=== PATIENT | female | born 1995 | race Hispanic/Latino ===

== ENCOUNTER 2020-03-08 05:57 | Inpatient (IN) | payer OTHER, SELFPAY ==
[2020-03-08] VITALS (168 sets, daily range): BP systolic 83–148; BP diastolic 33–95; PULSE 66–145; TEMP 36.3–37.3; O2SAT 89–100; BMI 42.5
[2020-03-08] MEDS: AMPICILLIN 2 GM/NS 100 ML 2 GM/100 ML BAG IVPB (06:37)
[2020-03-08] MEDS: LACTATED RINGERS 1,000 ML 125 ML IV CONT ×3 (06:39→18:22)
[2020-03-08] MEDS: OXYTOCIN 30 UNITS/NS 500 ML 30 UNITS/500 ML BAG 125 UNITS IV CONT (06:39)
[2020-03-08 06:55] LABS: Basophils Percent Auto 0.3 % (0.2-1.2); Eosinophils Absolute Auto 0.1 K/mm3 (0-0.3); Eosinophils Percent Auto 0.7 % (0-4.4); Hematocrit 40.1 % (37.0-47.0); Hemoglobin 13.3 g/dL (12.0-15.0); Immature Granulocyte Absolute 0.19 K/mm3 (0.00-0.031); Immature Granulocyte Percent A 1.5 % (0-0.5); Lymphocytes Absolute Auto 2.76 K/mm3 (0.9-3.2); Lymphocytes Percent Auto 22.5 % (18.3-44.2); Mean Corpuscular HGB Conc 33.2 g/dl (32-36); Mean Corpuscular Hemoglobin 29.5 pg (26-34); Mean Corpuscular Volume 88.9 fl (80-100); Mean Platelet Volume 10.7 fl (7.4-10.4); Monocytes Percent Auto 8.1 % (2.6-8.5); Neutrophils Absolute Auto 8.2 K/mm3 (1.3-6.7); Neutrophils Percent Auto 66.9 % (45.5-73.1); Platelet Count Result 221 k/mm3 (150-375); Red Blood Count 4.51 M/mm3 (4.2-5.4); Red Cell Distribution Width 14.9 % (11.5-14.5); White Blood Count 12.3 K/mm3 (4.5-10.0)
--- NOTE | 2020-03-08 07:34 | LDADM ---
This patient, Kimmie Blakely, was admitted to Labor/Delivery/Recovery 104 on 03/08/20 at 05:57. Plans for labor, pain management and were discussed with patient. Patient/family oriented to hospital policies and general routines including ID bracelet, bed and alarms, visiting hours, pain management, procedures, bathroom and other care routines, personal items, smoking policy, room service/diet and guest tray routines, infant security routines, and visiting hours. Patient/Family are encouraged to report perceived risks to care and to ask questions if they do not understand what they are told or what they should do. See OBIX for further documentation.
--- NOTE | 2020-03-08 09:16 | WPDANESEPP ---
Anes - Eval Pre Procedure Procedure: Labor epidural Date/Time: 03/08/20 09:16 Surgeon: Meir Frank M.D. Preop Diagnosis: pain during labor Pre Op Diagnosis: INDUCTION OF LABOR Patient Data Age: 24 Gender: F Height: 1.6 m Weight: 109 kg Last Vital Signs Temp 36.6 C 03/08/20 07:00 Pulse 70 03/08/20 09:00 BP 97/53 L 03/08/20 09:00 Allergies Allergy/AdvReac Type Severity Reaction Status Date / Time No Known Allergies Allergy Verified 02/20/20 14:57 Home Medications Medication Instructions Recorded Confirmed Type PNV cmb#95-ferrous fumarate-FA 1 tablet PO DAILY 02/20/20 02/20/20 History [] Laboratory Tests 03/08/20 03/08/20 03/08/20 06:35 06:35 06:35 WBC 12.3 K/mm3 H K/mm3 (4.5-10.0) RBC 4.51 M/mm3 M/mm3 (4.2-5.4) Hgb 13.3 g/dL g/dL (12.0-15.0) Hct 40.1 % % (37.0-47.0) MCV 88.9 fl fl (80-100) MCH 29.5 pg pg (26-34) MCHC 33.2 g/dl g/dl (32-36) RDW 14.9 % H % (11.5-14.5) Plt Count 221 k/mm3 k/mm3 (150-375) MPV 10.7 fl H fl (7.4-10.4) Immature Gran % (Auto) 1.5 % H % (0-0.5) Neut % (Auto) 66.9 % % (45.5-73.1) Lymph % (Auto) 22.5 % % (18.3-44.2) [place] % (Auto) 8.1 % % (2.6-8.5) Eos % (Auto) 0.7 % % (0-4.4) Baso % (Auto) 0.3 % % (0.2-1.2) Lymph # (Auto) 2.76 K/mm3 K/mm3 (0.9-3.2) [place] # (Auto) 1.0 K/mm3 H K/mm3 (0.1-0.6) Eos # (Auto) 0.1 K/mm3 K/mm3 (0-0.3) Baso # (Auto) 0.0 K/mm3 K/mm3 (0.0-0.1) Abs Immat Gran (auto) 0.19 K/mm3 H K/mm3 (0.00-0.031) Absolute Neuts (auto) 8.2 K/mm3 H K/mm3 (1.3-6.7) Absolute Nucleated RBC 0.0 K/mm3 K/mm3 (0.0-0.012) Nucleated RBC % 0.0 % % (0.0-0.2) RPR Pending Blood Type O Positive Antibody Screen Negative Patient hx anesthesia problems: none Family hx anesthesia problems: none PMFSH Past Medical History Medical History (Updated 03/08/20 @ 09:16 by Pallavi Owens CRNA) IUP (intrauterine ), incidental Morbid obesity with BMI of 40.0-44.9, adult Family History Family History (Updated 02/20/20 @ 14:59 by Marga Gillespie RN) Father Diabetes mellitus Grandparent Diabetes mellitus Grandparent Breast cancer Social History Social History Smoking status: Never smoker Substance use: never Spiritual care concerns: No Exam Day of Procedure 03/08/20 09:16
[2020-03-08] MEDS: AMPICILLIN 1 GM/NS 50 ML 1 GM/50 ML BAG IVPB ×4 (10:37→22:46)
[2020-03-08 11:08] LABS: Amphetamine Screen Urine Negative (Negative); Barbiturate Screen Urine Negative (Negative); Benzodiazepines Screen Urine Negative (Negative); Cannabinoid Screen Urine Negative (Negative); Cocaine Screen Urine Negative (Negative); Methadone Screen Urine Negative (Negative); Opiate Screen Urine Negative (Negative); Phencyclidine Screen Urine Negative (Negative)
--- NOTE | 2020-03-08 11:33 | PM.IMHP ---
H&P: HPI History of Present Illness Chief complaint: INDUCTION OF LABOR Narrative: Kimmie Blakely is a 24yo @ 39.0wks who presented for elective induction of labor. Her is complicated by: 1. GBS positive 2. Obesity Review of Systems Constitutional: Constitutional: Denies body ache(s) and Denies chills Eyes: Eyes: Denies blurry vision Cardiovascular: Cardiovascular: Denies chest pain and Denies palpitations Respiratory: Respiratory: Denies cough and Denies dyspnea Gastrointestinal: Gastrointestinal: Denies nausea and Denies vomiting Genitourinary: Genitourinary: Denies vaginal discharge Musculoskeletal: Musculoskeletal: Reports back pain Neurologic: Denies headache(s) PMFSH Past Medical History Medical History IUP (intrauterine ), incidental Morbid obesity with BMI of 40.0-44.9, adult Family History Family History Father Diabetes mellitus Grandparent Diabetes mellitus Grandparent Breast cancer Social History Social History Smoking status: Never smoker Substance use: never Spiritual care concerns: No Meds Home Medications and Allergies Home Medications Medication Instructions Recorded Confirmed Type PNV cmb#95-ferrous fumarate-FA 1 tablet PO DAILY 02/20/20 02/20/20 History [] Allergies Allergy/AdvReac Type Severity Reaction Status Date / Time No Known Allergies Allergy Verified 02/20/20 14:57 Vital Signs Vital Signs - 24 hr 03/08/20 06:30 03/08/20 06:32 03/08/20 06:46 Temperature Pulse Rate 81 88 76 Blood Pressure 142/79 H 134/61 134/78 03/08/20 07:00 03/08/20 07:01 03/08/20 07:16 Temperature 36.6 C Pulse Rate 74 80 Blood Pressure 133/80 106/90 03/08/20 07:31 03/08/20 07:46 03/08/20 08:16 Temperature Pulse Rate 80 97 80 Blood Pressure 126/75 83/33 L 86/48 L 03/08/20 08:31 03/08/20 09:00 06/25/20 09:30 Temperature Pulse Rate 81 70 68 Blood Pressure 101/46 L 97/53 L 108/60 Exam Const: General: comfortable and no acute distress Resp: Effort & Inspection: normal respiratory effort Cardio: Rate: regular rate : Other: FHT's: 130's/ mod jim/ + accels/ no decels - cat 1 TOCO: irregular ctx's Cervix: 60/-3 Membranes: AROM, clear @ 1120 on 03/08/20 Pitocin augmentation: 24mU Skin: General skin exam: normal color Neuro: Cognition (Neuro): normal cognition Speech: normal speech Extrem: General: normal to inspection Psych: Mental Status: mental status grossly normal Affect: normal affect H&P: Results Labs Labs: Short CBC 03/08/20 Range/Units 06:35 WBC 12.3 H (4.5-10.0) K/mm3 Hgb 13.3 (12.0-15.0) g/dL Hct 40.1 (37.0-47.0) % Plt Count 221 (150-375) k/mm3 Assessment and Plan Assessment and plan (1) IUP (intrauterine ), incidental: Code(s): Z33.1 - state, incidental Status: Acute (2) Morbid obesity with BMI of 40.0-44.9, adult: Code(s): E66.01 - Morbid (severe) obesity due to excess calories; Z68.41 - Body mass index (BMI) 40.0-44.9, adult Status: Acute Additional Plan - Admit to L&D for IOL - Pitocin per protocol, AROM clear @ 1120 on 03/08/20-- IUPC placed to better monitor contractions due to obesity - Continuous monitoring; currently category 1 - GBS ppx w/ ampicillin, s/p 4 hours of abx prior to AROM - BP's noted to be in the mild range occasionally on admission, none since; will monitor closely, if another develops, will send PI labs - Pt also has skin tag on right leg and would like removal after delivery (plans to get epidural) - Anesthesia consult PRN pain.
[2020-03-08] MEDS: OXYTOCIN 30 UNITS/NS 500 ML 30 UNITS/500 ML BAG 40 UNITS IV CONT (23:16)
[2020-03-09] VITALS (57 sets, daily range): BP systolic 85–132; BP diastolic 53–104; PULSE 43–143; RESP 16–18; TEMP 36.7–37.5; O2SAT 81–100
[2020-03-09] MEDS: MISOPROSTOL 200 MCG TABLET 1000 MCG RECTAL (02:00)
[2020-03-09] MEDS: OXYTOCIN 30 UNITS/NS 500 ML 30 UNITS/500 ML BAG 125 UNITS IV CONT (02:20)
--- NOTE | 2020-03-09 02:40 | PM.OBPRVD ---
OB - Delivery Note Procedure Delivery date: 03/09/20 Procedure: Patient progressed to complete dilation and began pushing. after approximately 1.5 hours the head was delivered over intact perineum. the shoulders and body delivered without complications. via had spontaneous cry and was immediately placed skin to skin. the umbilical cord was clamped and cut. a segment of cord was collected for cord gases. the remaining cord blood was collected for typing. a prophylactic dose of Cytotec was placed rectally due to the prolonged Pitocin augmentation with Pitocin running and gentle traction on the cord the placenta delivered without complications. the cervix vagina and perineum were examined and bilateral vaginal lacerations were noted and bleeding. they were repaired in a running fashion using 2 0 Vicryl and noted to be hemostatic. a first-degree perineal laceration was also noted and repaired using a lovolh-gw-pldln 2-0 Vicryl stitch. the fundus was palpated firm. the patient also had a skin tag noted on her inner right thigh desired removal. the skin tag was elevated and cut at its base. an interrupted stitch using 0 Vicryl and Steri-Strips were placed over the incision and good hemostasis was noted. sponge lap needle and instrument counts were correct at the end procedure. mom and baby were left bonding skin to skin in the birthing suite in stable condition. Induction method: per pitocin protocol Delivery augmentation: rupture of membranes Delivery monitor: external FHT and internal uterine Route of delivery: Laceration description: Vaginal - 1st Degree (and Perineal - 1st Degree) Delivery repair: vicryl Specimen: Yes Estimated blood loss (mL): 300 Anesthesia type: Epidural Disposition: floor [place] Baby Date of : 03/09/20 Time of : 01:54 Weeks of gestation at delivery: 39 Infant gender: Male Weight (pounds): 7 Weight (ounces): 8 presentation: vertex Placenta delivery description: Expressed cord vessel description: 3 Vessels score one minute: 9 score five minutes: 9
[2020-03-09] MEDS: IBUPROFEN 600 MG TABLET PO ×2 (03:14→15:54)
[2020-03-09] MEDS: BENZOCAINE 20% AER SPR (*SP) 56 GM CAN 1 SPRAY TOPICAL (03:14)
[2020-03-09] MEDS: WITCH HAZEL 40 PADS 1 PAD TOPICAL (03:14)
--- NOTE | 2020-03-09 04:40 | OBPPTRN ---
Patient transferred to post room #287 via wheelchair with in crib. Support person present. Oriented to unit, room, information board, rooming in, admission packet and security measures. Patient verbalizes understanding.
[2020-03-09 10:46] LABS: Rapid Plasma Reagin Non-Reactive (NonReactive)
[2020-03-09] MEDS: DOCUSATE SODIUM 100 MG CAPSULE PO (15:55)
[2020-03-10 05:34] LABS: Hematocrit 31.5 % (37.0-47.0); Hemoglobin 10.1 g/dL (12.0-15.0)
--- NOTE | 2020-03-10 07:40 | PM.OBDSVD ---
DS: Admitting Diagnosis Admitting Diagnosis Admitting Diagnosis: state, incidental OB - DS: Summary OB Procedures : None OB Procedures Intrapartum: Spontaneous Vag Delivery OB Procedures: : None Time Spent with Patient Time attestation: Total time spent providing and/or coordinating discharge services: DS: Data Data Completed and Pending Pending studies at discharge: Pending at discharge 03/09/20 02:12 Surgical [PTH] Routine Surgical [PTH] Routine Labs on day of discharge: Labs from last 24 hours 03/10/20 03/08/20 05:20 06:35 Hgb 10.1 L D Hct 31.5 L RPR Non-reactive Discharge Plan Discharge Discharging Clinician: Meir Frank Patient Disposition: Home, Self-Care Activity: as tolerated Diet: as tolerated Patient Instructions: Antibiotic Form Stand Alone Forms: General Discharge Information Follow-up/Referrals: Meir Frank MD [Physician] - 3 Weeks Discharge Medications: New ibuprofen 600 mg Tablet 600 mg PO Q6H PRN (Reason: Cramping) Qty: 30 RF: 0 Continued PNV cmb#95-ferrous fumarate-FA [] 28 mg iron- 800 mcg Tablet 1 tablet PO DAILY RF: 0 Date of admission: 03/08/20 05:57 Primary Care Provider: Mohini Castillo Admitting Provider: Meir Frank Attending physician on admission: Meir Frank
[2020-03-10 09:42] VITALS: BP 115/60; PULSE 79; RESP 12; TEMP 36.7; O2SAT 99
[2020-03-10] MEDS: IBUPROFEN 600 MG TABLET PO ×3 (09:42→23:22)
--- NOTE | 2020-03-10 10:07 | WPDANLDPN2 ---
Anes-Prog Note L&D Date/Time: 03/10/20 10:07 Comfortable throughout: labor and delivery Neuraxial method: epidural Epidural/Spinal procedure site: clean & non-tender Neuro status: Neuro function grossly intact. Cardiovascular status: normal Respiratory status: normal Airway patency: baseline Mental status: baseline Post-Op hydration status: normal Vital Signs: Last Vital Signs Temp 36.7 C 03/09/20 21:22 Pulse 96 03/09/20 21:22 Resp 17 03/09/20 21:22 BP 113/66 03/09/20 21:22 Pulse Ox 99 03/09/20 08:20 Pain score (VAS): 0/10. Patient resting up to bedside at time of assessment, appears comfortable. Post-procedural complaints: none Patient feedback: Patient satisfied with anesthetic care.
--- NOTE | 2020-03-10 10:19 | PCCCNOTE ---
SS Note. Received consult. Met with pt. and father of baby at bedside. Pt. and father of baby are awake, alert and participate in discussion. 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 She indicates quitting use of meth and quit smoking when known. Her UDS is negative. She lives with her mother and father and plans to return there with baby at discharge. She indicates that her mother and father are supportive and will assist her at discharge. She also indicates father of baby being supportive. She states having all needed items to care for baby at discharge home and is current with WIC. She reports having no history with DCFS. This is her first child. Have offered additional resources and she accepted same. Encouraged she contact any/all of interest. Have informed RN of all above and no further concerns are indicated at this time.
[2020-03-10] MEDS: DOCUSATE SODIUM 100 MG CAPSULE PO (16:44)
[2020-03-10 19:00] VITALS: BP 110/69; PULSE 94; RESP 16; TEMP 36.3; O2SAT 98
[2020-03-11 07:53] VITALS: BP 131/71; PULSE 93; RESP 16; TEMP 36.9; O2SAT 99
[2020-03-11] MEDS: DOCUSATE SODIUM 100 MG CAPSULE PO (07:53)
[2020-03-11] MEDS: IBUPROFEN 600 MG TABLET PO (07:53)
[2020-03-13 08:49] VITALS: BP 120/74; PULSE 72; RESP 20; TEMP 37.1; O2SAT 100
--- NOTE | 2020-04-02 07:10 | P.DS_ITS ---
DS: Admitting Diagnosis Admitting Diagnosis Admitting Diagnosis: Encounter for supervision of normal , unspecified, third trimester OB - DS: Summary OB Procedures : None OB Procedures Intrapartum: OB Procedures: : None Time Spent with Patient Time attestation: Total time spent providing and/or coordinating discharge services: DS: Data Data Completed and Pending Completed studies during hospitalization: Pending at discharge 03/09/20 02:12 Surgical [PTH] Routine Surgical [PTH] Routine Discharge Plan Discharge Discharging Clinician: Meir Frank Patient Disposition: Home, Self-Care Activity: as tolerated Diet: as tolerated Discharge Instructions: Education: Mom and Baby Guide Given to: Patient Follow-Up: Call your delivering provider's office for an appointment to be seen in: 3 weeks Mom and baby should come to the [facility] for the follow-up appointment. Appointment Date/Time: Thursday03/13/2020 at 9:00 am Call [phone] if you are unable to keep your appointment time. BREAST CARE: 1. Wear a snug supportive bra. 2. For engorgement discomfort: Bottle Feeding: A. May apply ice packs EPISIOTOMY/PERINEAL CARE: 1. Until bleeding stops, use your tawnya bottle after urinating 2. Change your pad frequently throughout the day 3. You may take sitz baths several times a day (fill your bathtub with warm water and soak for 20 minutes.) Do NOT bathe in the water 4. No tub baths until seen by your physician - You may shower ACTIVITY: 1. Rest as much as possible. 2. Do not exercise or lift anything heavier than your baby (such as laundry or other children.) 3. Avoid stairs or driving as much as possible. 4. Do not put anything into the vagina. No douching, tampons, or sexual activity until seen by physician. NOTIFY PHYSICIAN IF YOU HAVE ANY QUESTIONS OR IF ANY OF THE FOLLOWING SYMPTOMS OCCUR: 1. If your episiotomy or incision becomes red, swollen, or more painful than what you have experienced in the hospital. 2. If your vaginal bleeding becomes foul smelling. 3. If your vaginal bleeding becomes more heavy than a period or if your bleeding changes from pink to bright red. However, you may pass an occasional walnut- sized clot once or twice for the first week . 4. If you experience a sharp, shooting pain in you calves. 5. If you discover a hard, reddened area on your breast or if you experience flu-like symptoms. DIET: 1. Eat regular, well-balanced meals. 2. Drink plenty of fluids daily. If , drink to thirst. Patient Instructions: Antibiotic Form Follow-up/Referrals: Meir Frank MD [Physician] - 3 Weeks Discharge Medications: New ibuprofen 600 mg Tablet 600 mg PO Q6H PRN (Reason: Cramping) Qty: 30 RF: 0 Continued PNV cmb#95-ferrous fumarate-FA [] 28 mg iron- 800 mcg Tablet 1 tablet PO DAILY RF: 0 Date of admission: 03/08/20 05:57 Primary Care Provider: Mohini Castillo Admitting Provider: Meir Frank Discharge Date/Time: 03/11/20 11:19 Attending physician on admission: Meir Frank
== END 2020-03-11 11:19 | disposition home or self-care (01) | DRG 560 ==
LOC: ANHLDR 06:20 → ANHOB2 03-09 05:04
PROVIDERS: Obstetrics & Gynecology; Admitting Provider Obstetrics & Gynecology; PCP Pediatrics; Visit Provider Obstetrics & Gynecology
DX: O99.824 Streptococcus B carrier state complicating childbirth (principal); O71.4 Obstetric high vaginal laceration alone; Z3A.39 39 weeks gestation of pregnancy; Z37.0 Single live birth; O99.214 Obesity complicating childbirth; E66.01 Morbid (severe) obesity due to excess calories
CPT/HCPCS: 36415; 80307; 85014; 85018; 85025; 86592; 86850; 86900; 86901; 88304; 88305; 88307; A9270; J0290; J2590; J2795; J3010; J7120

== ENCOUNTER 2025-07-10 11:59 | Emergency (ER) | payer OTHER, SELFPAY ==
--- NOTE | ~2025-07-10 | XR_ITS ---
EXAMINATION: XR ankle LT min 3V DATE: 07/10/2025 12:53 INDICATION: Left ankle pain TECHNIQUE: Anteroposterior, oblique, mortise, and lateral views of the left ankle were obtained. COMPARISON: None. FINDINGS: Partially visualized plate and screw fixation at the mid left tibial diaphysis. Hyperextension at the second-fourth metatarsophalangeal joints. Alignment is otherwise normal. No fracture. Mild osteoarthritis at the first metatarsophalangeal and a few of the tarsal metatarsal joints. Joint spaces are relatively preserved at the left ankle and hindfoot. No erosions or periosteal reaction. No ankle joint effusion. IMPRESSION: 1. Mild polyarticular osteoarthritis in the mid and forefoot. No acute osseous abnormality. Reviewed, dictated and finalized at location A.
[2025-07-10 12:12] VITALS: BP 146/89; PULSE 70; RESP 20; TEMP 36.6; O2SAT 99
--- NOTE | 2025-07-10 12:37 | ED.LOWEXIN ---
HPI - Extremity Injury (Lower) General Chief Complaint: Extremity Injury, Lower Stated Complaint: L ankle pain Time Seen by Provider: 07/10/25 12:37 Source: patient and RN notes reviewed Mode of arrival: ambulatory Limitations: no limitations History of Present Illness HPI Narrative: 29-year-old female presents with concern for left ankle pain. She reports it has been painful for about a week. She was doing weightlifting on leg day and the next morning she woke up with ankle pain she denies any injury or trauma. She reports the pain is okay in the morning and progressive throughout the day as she walks on a. She is using a crutch. complaint: ankle injury Related Data Allergies Allergy/AdvReac Type Severity Reaction Status Date / Time No Known Allergies Allergy Verified 07/10/25 12:16 Review of Systems Review of Systems: CONSTITUTIONAL: Denies malaise, chills, sweats, or fever. SKIN: Denies rash or itching, open skin, laceration, abrasion, redness, warmth MUSCULOSKELETAL: Reports left ankle pain and swelling NEUROLOGIC: Denies numbness, weakness All systems reviewed & are unremarkable except as noted in HPI and below PMFSH Past Medical History Medical History (Updated 07/10/25 @ 13:21 by Wendy Gaston APRN) IUP (intrauterine ), incidental Morbid obesity with BMI of 40.0-44.9, adult Family History Family History (System 05/22/22 @ 15:24 by Cristhian Madsen) Father Diabetes mellitus Grandparent Diabetes mellitus Grandparent Breast cancer Social History Social History (System 05/22/22 @ 15:24 by Cristhian Madsen) Smoking status: Never smoker Substance use: never Spiritual care concerns: No Comments At time of signature, agree with nursing past medical, surgical, social and family history. There is no relevant family history pertinent to the presenting complaint Exam Narrative: GENERAL: Well-appearing, well-nourished, and in no acute distress. HEAD: Normocephalic, atraumatic. EYES: PERRLA, conjunctivae clear NECK: Supple. CHEST: Speaks in full sentences. No respiratory distress. HEART: Regular rate and rhythm. Normal and equal peripheral pulses. EXTREMITIES: Left ankle, foot, digits have grossly normal strength and sensation, grossly normal range of motion. No edema or ecchymosis. Normal sensation with sensitivity to light touch and pain. No point tenderness. No open wounds, no skin tenting, no devitalized tissue or atrophy, no trophic changes, no obvious deformity, alignment normal, nearby joints and structures intact. Distal pulses palpable and equal bilaterally, skin warm, dry, pink. Capillary refill less than 3 seconds. SKIN: Warm, dry, no rash. NEURO: Alert and oriented x3. PSYCH: Normal mood and affect Course Course Emergency Course: Patient is aware of diagnosis, understands and agrees to treatment plan. Anticipatory guidance given. Patient agrees to follow-up as directed and is aware of reasons to seek care at the emergency department. Portions of this record may have been created with voice recognition software Level of Care: Express Care Visit Vital Signs Vital signs: Vital Signs Temperature 97.8 F 07/10/25 12:12 Pulse Rate 70 07/10/25 12:12 Respiratory Rate 20 07/10/25 12:12 Blood Pressure 146/89 H 07/10/25 12:12 Pulse Oximetry 99 07/10/25 12:12 Oxygen Delivery Room Air 07/10/25 12:12 Temperature 97.8 F 07/10/25 12:12 Pulse Rate 70 07/10/25 12:12 Respiratory Rate 20 07/10/25 12:12 Blood Pressure 146/89 H 07/10/25 12:12 Pulse Oximetry 99 07/10/25 12:12 Oxygen Delivery Room Air 07/10/25 12:12 Reviewed. MDM - Extremity Injury (Lower) MDM Narrative Medical decision making narrative: The patient was evaluated by myself in the express care. History is obtained from patient who is an independent historian and physical exam was performed.? Available medical records were reviewed at this time. ? Exam findings show no acute concerns or changes; patient is non-toxic appearing and is in no distress. Patient is appropriate for outpatient treatment and follow-up. ? I have evaluated and discussed social determinants of health with the patient that could potentially impact subsequent diagnosis and treatment plans. ? Patients injury and pain is consistent with musculoskeletal etiology. No signs of neurological or vascular compromise on exam. Compartments and tissues are soft without signs of compartment syndrome. Pain is felt appropriate for further evaluation on an outpatient basis. Critical Care Time Critical Care Time Critical Care Time: No Discharge Plan Discharge Clinical Impression: Ankle pain Patient Disposition: Home Condition: Stable Instructions: Ankle Sprain (ED) Additional Instructions: Your x-ray is normal Avoid activities that cause pain until the pain subsides. Ice to the area 20-30 minutes 4-6 times a day Elevate above heart Elastic wrap or orthopedic splint as directed for comfort for the next 5-7 days Crutches as directed if needed Tylenol for lesser pain Ibuprofen regularly for the next 2-3 days for the inflammation Follow up with your primary care provider if the condition is not improving within 1 week. If the condition worsens with numbness, tingling, decrease sensation with weakness seek treatment in the emergency room immediately. Patient Language: [place] Island[place] Follow-up/Referrals: PHYSICIAN,TRAFFIC RATE ANALYST [Primary Care Provider, Internal Medicine] Stand Alone Forms: Work/School Release IP Time of Disposition: 13:20
--- OUTSIDE RECORDS SUMMARY | 2025-07-10 13:27 | XMS_ITS | Clinical Summary ---
Author Organization [facility] [employer] Address [address] [place] [address] Care Team Providers Care Ethics Officer Name Role Phone Edel Rodríguez PA-C Primary Care Provider + Source Comments [facility],non-owned Affiliates and Associated Physician Practices is amultiple site organization consisting of ambulatory clinics and hospital sitesin [place], [place], [place] and [place]. This disclosure is being madepursuant to the Care Everywhere program and may not contain all information available regarding this patient. Last updated 18.[facility] Allergies No known active allergies Medications * Be aware that medications may not be up to date on this document. Alwaysverify current medications with the patient. oxyCODONE, immediate release, (Roxicodone) 5 MG tabletIndicatio ns:Closed fracture of left tibial plateau with routine healing, subsequent encounter Take 1 (one) tablet by mouth 3 times daily as needed 30 tablet 3 Active polyethylene glycol 3350 (MiraLax) 17 g packetIndicatio ns:Closed fracture of left tibial plateau, initial encounter Take 17 (seventeen) g by mouth once daily as needed for Constipation 3 Active oxyCODONE-aceta minophen (Percocet) 5-325 MG tabletIndicatio ns:Closed fracture of left tibial plateau with routine healing, subsequent encounter Take 1 (one) tablet by mouth every 8 hours as needed for Pain 40 tablet 3 Active cyclobenzaprine (Flexeril) 10 MG tabletIndicatio ns:Closed fracture of left tibial plateau, initial encounter Take 1 (one) tablet by mouth 3 times daily as needed 30 tablet 3 3 Active HYDROcodone-samantha taminophen (Fleming) 5-325 MG tabletIndicatio ns:Closed fracture of left tibial plateau, initial encounter Take 1 (one) tablet by mouth every 8 hours as needed for Pain 40 tablet 3 Active Xarelto 10 MG tablet TAKE 1 (ONE) TABLET BY MOUTH DAILY WITH DINNER FOR 90 DAYS 30 tablet 2 3 Active Active Problems Problem Noted Date Diagnosed Date Fall, initial encounter 09/14/2022 Closed fracture of left tibial plateau, initial encounter 09/14/2022 Social History Tobacco Use Types Packs/Day Years Used Date Smoking Tobacco: Never Smokeless Tobacco: Never Tobacco Cessation:Counseling Given: Not Answered Alcohol Use Standard Drinks/Week Comments Not Currently 0 (1 standard drink = 0.6 oz pur e alcohol) AUDIT-C Answer Date Recorded Q1: How often do you have a drink containing alc ohol? Monthly or less 09/16/2022 Q2: How many drinks containi ng alcohol do you have on a typical day when you are drinking? 5 or 6 09/16/2022 Q3: How often do you have si x or more drinks on one occasion? Less than monthly 09/16/2022 Hunger Vital Sign Answer Date Recorded Within the past 12 months, y ou worried that your food would run out before you got the money to buy more. Never true 09/15/19 23 Within the past 12 months, t he food you bought just didn't last and you didn't have money to get more. 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 Gender Identity Not on file Sexual Orientation Not on file Last Filed Vital Signs Vital Sign Reading Time Taken Comments Blood Pressure 134/80 10/02/2022 12:20 PM BILLPOSTING SUPERVISOR Pulse 92 10/02/2022 12:20 PM BILLPOSTING SUPERVISOR Temperature 37.1 C (98.8 F) 10/02/2022 12:20 PM BILLPOSTING SUPERVISOR Respiratory Rate 18 10/02/2022 12:20 PM BILLPOSTING SUPERVISOR Oxygen Saturation 97% 10/02/2022 12:20 PM BILLPOSTING SUPERVISOR Inhaled Oxygen Concentration - - Weight 105.7 kg (233 lb) 01/07/2023 10:47 AM CDT Height 162.6 cm (5' 4) 01/07/2023 10:47 AM CDT Body Mass Index 39.99 01/07/2023 10:47 AM CDT Plan of Treatment Health Maintenance Due Date Last Done Comments HIV SCREENING 2011 HEPATITIS C SCREENING 09/09/2014 DTAP/TDAP/TD VACCINES (1 - Tdap) 2015 HEPATITIS B VACCINE (1 of 3 - 19+ 3-dose series) 2015 PAP SMEAR 2017 HPV VACCINE (1 - 3-dose SCDM series) 2023 DEPRESSION SCREENING 09/14/2024 COVID-19 VACCINE (1 - 2023-2 5 season) 2025 INFLUENZA VACCINE (#1) 2025 09/24/2012 ZOSTER VACCINE (1 of 2) 2046 HIB VACCINE Aged Out No longer eligi ble based on patient's age to complete this topic MENINGOCOCCAL (Group B) VACC INE SHARED DECISION-MAKING Aged Out No longer eligibl e based on patient's age to complete this topic MENINGOCOCCAL GROUPS A/C/Y/W VACCINE Aged Out No longer eligible b ased on patient's age to complete this topic PNEUMOCOCCAL VACCINE Aged Out No long er eligible based on patient's age to complete this topic Medical Devices Implanted Type Area Kettle Skimmer Device Identifier Shelf Expiration Date Model / Serial / Lot Post Extfix Jtx 30d Nonster Implanted:Qty: 2 on 09/15/2022 at [facility] Left: [employer] [id number] / / Screw 3.5mm 32mm Ft Slf-Tap Hex Lopro Implanted:Qty: 1 on 09/30/2022 by Michael Zuleta MD at [facility] Left: [employer] [id number] / / Screw 3.5mm 42mm Ft Slf-Tap Hex Lopro Implanted:Qty: 2 on 09/30/2022 by Michael Zuleta MD at [facility] Left: [employer] [id number] / / Screw 3.5mm 50mm T15 Slf-Tap Lck Tpr Implanted:Qty: 1 on 09/30/2022 by Michael Zuleta MD at [facility] Left: [employer] [id number] / / Screw 3.5mm 60mm T15 Lck Slf-Tap Tip Tpr Implanted:Qty: 3 on 09/30/2022 by Michael Zuleta MD at [facility] Left: [employer] [id number] / / Screw 3.5mm 65mm T15 Lck Slf-Tap Tip Tpr Implanted:Qty: 3 on 09/30/2022 by Michael Zuleta MD at [facility] Left: [employer] [id number] / / Screw 3.5mm 70mm T15 Lck Slf-Tap Tip Tpr Implanted:Qty: 1 on 09/30/2022 by Michael Zuleta MD at [facility] Left: [employer] [id number] / / Plate 13 Hl Lck Lopro Dist Blt Tip Tib Implanted:Qty: 1 on 09/30/2022 by Michael Zuleta MD at [facility] Left: [employer] [id number] / / Screw 3.5mm 75mm T15 Lck Slf-Tap Tip Tpr Implanted:Qty: 1 on 09/30/2022 by Michael Zuleta MD at [facility] Left: [employer] [id number] / / Screw 3.5mm 30mm Ft Slf-Tap Hex Lopro Implanted:Qty: 4 on 09/30/2022 by Michael Zuleta MD at [facility] Left: [employer] [id number] / / Explanted Type Area Kettle Skimmer Device Identifier Shelf Expiration Date Model / Serial / Lot Pin Hlf 225mm 5mm Jtx Lng Orth Ss 40mm Explanted:Qty: 2 on 09/15/2022 at [facility] Left: [employer] [id number] / / Pin Hlf 17.5cm 5mm Jtx Ss 35mm Extfix Explanted:Qty: 2 on 09/15/2022 at [facility] Left: [employer] [id number] / / Clamp Extfix Jtx 10.5-5mm Al Ss Qck Cnct Explanted:Qty: 4 on 09/15/2022 at [facility] Left: [employer] [id number] / / Screw 3.5mm 80mm Sq Drv Nonlock Lopro Explanted:Qty: 1 on 09/30/2022 by Michael Zuleta MD at [facility] Left: [employer] [id number] / / Wire K 1.6mm 6in Hlf Bynt Pnt Ss Fx Explanted:Qty: 4 on 09/30/2022 by Michael Zuleta MD at [facility] Left: [employer] [id number] / / Advance Directives * Full Code (Latest Code Status on File) Date Activated Date Inactivated Comments 09/30/2022 10:47 AM 10/02/2022 7:42 PM * Full Code Date Activated Date Inactivated Comments 09/14/2022 5:08 PM 09/17/2022 6:05 PM Care Teams Ethics Officer Relationship Specialty Start Date End Date Edel Rodríguez PA-C [address] [place] [phone] PCP - General Physician Sales Market Leader 09/14/22
--- OUTSIDE RECORDS SUMMARY | 2025-07-10 13:27 | XMS_ITS | Clinical Summary ---
Author Organization [facility] [address] Address [address] [place] [address] Phone Care Team Providers Care Him Manager Name Role Phone No, Physician Unavailable Edel Rodríguez Primary Care Provider [phone] Allergies No known active allergies Medications chlorhexidine (PERIDEX) 0.12 % solution SWISH 15ML FOR 30 SECONDS AND SPIT TWICE DAILY DIRECTED FOR 16 DAYS 04/20/2023 Active Active Problems No known active problems Surgical History Surgery Date Site/Laterality Comments FL FLUORO GUIDED LUMBAR PUNCTURE 08/01/2022 Right Medical History Medical History Date Comments PCOS (polycystic ovarian syndrome) Pseudotumor cerebri Social History Tobacco Use Types Packs/Day Years Used Date Smoking Tobacco: Every Day Vaping Smokeless Tobacco: Never AUDIT-C Answer Date Recorded Frequency of Alcohol Consumption Not on file 08/01/2022 Q2: How many drinks containi ng alcohol do you have on a typical day when you are drinking? 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 Gender Identity Female 05/20/2022 10:07 PM CDT Sexual Orientation Straight 05/20/2022 10 :07 PM CDT Occupation Industry Job Start Date Job End Date [employer] Not on file Not on file Not on file Obstetrics History Para Term AB IAB SAB Ectopic Multiple Livin g Live Births 1 1 1 1 1 Date Outcome GA Total Labor Labor/2nd/3rd Weight Sex Type Anes PTL Eugenie A1 A5 Name Clin 2019 Term M Vag-S pont Living Last Filed Vital Signs Vital Sign Reading Time Taken Comments Blood Pressure 124/78 05/11/2023 1:34 PM CDT Pulse 85 08/13/2022 10:01 AM CUSTOMER GREETER Temperature 36.8 C (98.2 F) 08/01/2022 9:40 AM CUSTOMER GREETER Respiratory Rate 16 08/13/2022 10:0 1 AM CUSTOMER GREETER Oxygen Saturation 97% 08/13/2022 10: 01 AM CUSTOMER GREETER Inhaled Oxygen Concentration - - Weight 106.4 kg (234 lb 9.6 oz) 05/11/2023 1:34 PM CDT Height 160 cm (5' 3) 05/11/2023 1:34 PM CDT Body Mass Index 41.56 05/11/2023 1:34 PM CDT Plan of Treatment Health Maintenance Due Date Last Done Comments Depression Screening 1996 Hepatitis C Screening 1996 Varicella Vaccines (1 of 2 - 13+ 2-dose series) 2009 Pneumococcal vaccine <65 (1 of 2 - PCV) 2015 DTaP/Tdap/Td Vaccine (7 - Td or Tdap) 03/10/2017 03/10/2007, 03/10/2002, 01/22/1998, Additional history exists Cervical Cancer Screening 05/09/2023 05/09/2022 Regular Well Visit/Exam 18-64 05/11/2024 05/11/2023, 05/09/2022 Influenza Vaccine (#1) 2025 09/24/2012 Hepatitis B Screening Completed 06/22/1997 , 1996, 1996 HPV Vaccines Completed 08/20/2009, 02/13, 12/31/2007 Procedures Procedure Name Priority Date/Time Associated Diagnosis Comments PAP WITH REFLEX TO HIGH RISK HPV Routine 05/09/2022 11:54 AM CDT Screening for malignant neoplasm of the cervix from Last 3 Months or Most Recently Relevant to Health Maintenance Results * (ABNORMAL) Pap with reflex to High Risk HPV (05/09/2022 11:54 AM CDT) Thin prep (Pap test) 05/09/2022 11:54 AM CDT 05/09/2022 11:54 AM CDT Narrative PATHOLOGY CH - 05/16/2022 6:01 PM CDT [facility] [address] [place], [place] [id number] Final Report with Addendum Note to Patients: This report may contain a detailed description of human tissue sent by a health care provider to the laboratory for pathologic evaluation. The content of this report is essential for diagnosis and may provide important critical findings. This information may be unfamiliar to patients to review without a medical professional present. It is advised that the patient review this report in the presence of a health care provider who can answer questions and explain the details. Patient Name: ANA ROSA GOODMAN Address: [address] [place] [address] Gender: F : 1995 (Age: 26) Service: Laboratory Location: Lab [facility] #: [id number] Patient Type: Ref Lab Taken: 05/09/2022 Received: 05/09/2022 Accessioned:: 05/12/2022 Reported: 05/16/2022 Physician(s): Derrell Norton D.O. Diagnosis: Source of Specimen: Imaged Thinprep Pap Test w/ Reflex HPV - Harness Inspector Cytologic Material Specimen Adequacy: - Satisfactory for evaluation; endocervical/transformation zone component present General Category: - Epithelial cell abnormality Interpretation/Results: - Atypical squamous cells of undetermined significance; - High risk HPV test pending -- addendum to follow - Numerous RBC's KARL Triplett(ASCP)Halima Calderon M.D. Report Electronically Reviewed and Signed Out By Halima Calderon M.D. 05/16/2022 18:01:20Addenda: HPV Test Interpretation NEGATIVE for types 16, 18, 31, 33, 35, 39, 45, 51, 52, 56, 58, 59, 66 and 68. Test performed utilizing Gen-Probe Aptima assay. KARL Triplett(ASCP)Report Electronically Reviewed and Signed Out By KARL Triplett(ASCP) 05/22/2022 15:48:41 Specimen(s) Received: A: Imaged Thinprep Pap Test w/ Reflex HPV - Harness Inspector Cytologic Material Clinical History: Last Menstrual Period: 03/13/22 The Pap test is a screening test used to aid in the detection of cervical cancer and its precursors. It should not be the sole means by which malignant and premalignant lesions are diagnosed. Both false negative and false positive results may occur. It also has poor sensitivity for the detection of endometrial lesions and should not be used to evaluate suspected endometrial abnormalities. For these reasons it is most important to obtain Pap tests at regular intervals. The performance characteristics of some immunohistochemical stains, fluorescence in-situ hybridization tests and immunophenotyping by flow cytometry cited in this report (if any) were determined by the Surgical Pathology Department at [facility] as part of an ongoing quality assurance supervisor chassis program and in compliance with federally mandated regulations drawn from the Clinical Laboratory Improvement Act of 1988 (CLIA '88). Some of these tests rely on the use of analyte specific reagents and are subject to specific labeling requirements by the US Food and Drug Administration. Such diagnostic tests may only be performed in a facility that is certified by the Department of Health and Human Services as a high complexity laboratory under CLIA '88. The FDA has determined that such clearance or approval is not necessary. This test is used for clinical purposes. It should not be regarded as investigational or for research. Nevertheless, federal rules concerning the medical use of analyte specific reagents require that the following disclaimer be attached to the report: This test was developed and its performance characteristics determined by the Surgical Pathology Department [facility]. It has not been cleared or approved by the U. S. Food and Drug Administration. us Gayle Bean DO LAB CYTOLOGY ORDERABLES Final Result [facility] [address] [place] [address] from Last 3 Months or Most Recently Relevant to Health Maintenance Insurance [facility] Advance Directives For more information, please contact: [phone] * Full Code (Latest Code Status on File) Date Activated Date Inactivated Comments 08/01/2022 11:03 AM 08/02/2022 4:53 AM Care Teams Him Manager Relationship Specialty Start Date End Date Edel Rodríguez PA [address] [place] [id number] PCP - General 05/06/22 No, Physician 02/28/22
== END 2025-07-10 13:25 | disposition home or self-care (01) ==
PROVIDERS: Emergency Provider Nurse Practitioner
DX: M25.572 Pain in left ankle and joints of left foot (principal); E66.01 Morbid (severe) obesity due to excess calories; Z68.41 Body mass index [BMI] 40.0-44.9, adult
CPT/HCPCS: 73610; 99213; G0463